=== PATIENT | female | born 1995 | race Caucasian/White ===

== ENCOUNTER → 2016-07-20 | Outpatient (CLI) | payer BC ==
[~2016-07-20] MED LIST: VIIBRYD40 MG PO
== END ==
LOC: BHSO 07:59
DX: F90.0 Attention-deficit hyperactivity disorder, predominantly inattentive type (principal)

== ENCOUNTER 2016-10-14 16:18 | Emergency (ER) | payer BC ==
[~2016-10-14] VITALS: Ht 190.5 cm; Wt 106.8 kg
[2016-10-14 16:24] VITALS: BP 139/88; PULSE 98; TEMP 99.6
[2016-10-14] MEDS ORDERED: VIIBRYD40 MG PO ×2 (16:28→17:14)
== END 2016-10-14 17:21 | disposition home or self-care (01) ==
LOC: COL.ER 16:18
DX: F32.9 Major depressive disorder, single episode, unspecified (principal); F90.9 Attention-deficit hyperactivity disorder, unspecified type; F41.9 Anxiety disorder, unspecified; Z76.0 Encounter for issue of repeat prescription

== ENCOUNTER → 2017-01-20 | Outpatient (CLI) | payer BC | LOC: BHSO 15:30 | DX: F90.0 Attention-deficit hyperactivity disorder, predominantly inattentive type (principal) ==

== ENCOUNTER 2017-03-27 10:54 | Outpatient (RCR) | payer OTHER | END 2017-06-15 | disposition home or self-care (01) | LOC: WSOH | DX: S39.012A Strain of muscle, fascia and tendon of lower back, initial encounter (principal); X50.0XXA Overexertion from strenuous movement or load, initial encounter; Y99.0 Civilian activity done for income or pay ==

== ENCOUNTER → 2017-04-19 | Outpatient (CLI) | payer BC, OTHER | LOC: BHSO 14:38 | DX: F90.0 Attention-deficit hyperactivity disorder, predominantly inattentive type (principal) | CPT/HCPCS: G0463 ==

== ENCOUNTER → 2017-11-01 | Outpatient (CLI) | payer BC | LOC: BHSO 14:14 | DX: F90.0 Attention-deficit hyperactivity disorder, predominantly inattentive type (principal) | CPT/HCPCS: G0463 ==

== ENCOUNTER → 2018-05-02 | Outpatient (CLI) | payer BC, OTHER | LOC: BHSO 14:14 | DX: F90.0 Attention-deficit hyperactivity disorder, predominantly inattentive type (principal) | CPT/HCPCS: G0463 ==

== ENCOUNTER → 2018-11-09 | Outpatient (CLI) | payer BC, OTHER | LOC: BHSO 11:32 | DX: F90.0 Attention-deficit hyperactivity disorder, predominantly inattentive type (principal) | CPT/HCPCS: G0463 ==

== ENCOUNTER → 2019-05-13 | Outpatient (CLI) | payer BC | LOC: BHSO 08:24 | DX: F90.0 Attention-deficit hyperactivity disorder, predominantly inattentive type (principal) | CPT/HCPCS: G0463 ==

== ENCOUNTER → 2019-12-12 | Outpatient (CLI) | payer BC | LOC: BHSO 16:21 | DX: F90.0 Attention-deficit hyperactivity disorder, predominantly inattentive type (principal) | CPT/HCPCS: G0463 ==

== ENCOUNTER 2022-06-11 09:57 | Inpatient (IN) | payer BC ==
[~2022-06-11] VITALS: Ht 193 cm; Wt 136.4 kg
[2022-06-11] VITALS (9 sets, daily range): BP systolic 119–138; BP diastolic 71–92; PULSE 73–91; TEMP 97.8–98.6
[2022-06-11] MEDS ORDERED: VYVANSE40 MG PO (10:25)
[2022-06-11 10:52] LABS: BASO % 0.5 % (0.0-2.0); EOS # 0.1 K/mm3 (0.0-0.7); EOS % 2.2 % (0.0-4.0); GRAN # 3.5 K/mm3 (1.4-6.5); GRAN % 54.4 % (42.2-75.2); HEMOGLOBIN 12.2 g/dl (12.5-16.0); LYMPH # 2.3 K/mm3 (1.2-3.4); LYMPH % 35.3 % (20.0-51.0); MEAN CELL VOLUME 86 fl (80.0-100.0); MEAN CORPUSCULAR HEMOGLOBIN 28 pg (27-31); MEAN CORPUSCULAR HGB CONC 33 g/dl (33.0-37.0); MEAN PLATELET VOLUME 9.3 fl (7.4-10.4); MONO # 0.5 K/mm3 (0.1-0.6); MONO % 7.1 % (1.7-9.3); PLATELET COUNT 334 K/mm3 (130-400); REDCELL DISTRIBUTION WIDTH-CV 14.2 % (11.5-14.5)
[2022-06-11 10:57] LABS: HEMATOCRIT 36.9 % (37.0-47.0)
[2022-06-11 11:01] LABS: ALBUMIN 3.8 gm/dL (3.5-5.0); BILIRUBIN,TOTAL 0.9 mg/dL (0.2-1.2); CALCIUM 8.8 mg/dL (8.4-10.2); CREATININE, serum 0.73 mg/dL (0.57-1.11); POTASSIUM 4.1 mmol/L (3.5-4.5); TOTAL PROTEIN 6.8 gm/dL (6.2-8.1)
[2022-06-11 12:06] LABS: COLLECTION METHOD CLEAN CATCH
[2022-06-11 12:32] LABS: MUCOUS Present (NOT PRESENT); URINE BACTERIA None Seen /hpf (NONE SEEN); URINE RBC 0-2 /hpf (0-2)
[2022-06-11 12:37] LABS: URINE APPEARANCE Clear (CLEAR/HAZY); URINE BLOOD Negative (NEGATIVE); URINE COLOR Yellow (YELLOW); URINE GLUCOSE Negative (NEGATIVE); URINE KETONE Negative (NEGATIVE); URINE NITRATE Negative (NEGATIVE); URINE PROTEIN(semi-quant) Negative (NEGATIVE); URINE UROBILINOGEN 0.2 E.U/dL (0.2-1.0)
--- NOTE | 2022-06-11 16:24 | NUR ---
Patient received post op from Rhina Pacu nurse. Patient very sleepy, arousable to name. Her significant other at bedside. VSS on O2, 3L. Ivf to RAC. Ice water provided. Midline dressing CDI. SCDS BLE. Cherelle to DD. Will closly monitor
--- NOTE | 2022-06-11 17:41 | NUR ---
Patient attempted to eat soup, but nausea persist. notified & orders obtained. Scopalimine patch ordered & placed behind patients right ear. Patient reports burning incisional pain with movement. Prn Morphine given. Patient does reports overall the pain being better than prior to surgery. She requested SCDS be removed, I removed, but explained importance to patient. IVF to Rac. Will monitor.
--- NOTE | 2022-06-11 19:27 | NUR ---
Patient resting in bed. Reports positional nausea still, she reports she is someone who had terrible car sickness. She did eat a little for dinner without emesis. Pain present, but managed with the Prn pedritoie. Bedside report to [facility] to resume cares
--- NOTE | 2022-06-11 19:30 | NUR ---
PT RESTING IN BED. DROWSY BUT ORIENTED. ADMITS TO MILD NAUSEA WITH HEAD MOVEMENT. SCOPOLAMINE PATCH PRESENT. O2 ON 2L NC FOR NAUSEA. PAIN UNDER CONTROL AT THIS TIME. DRIFTS BACK TO SLEEP. SIG OTHER AT BEDSIDE. VERY SUPPORTIVE. CALL LIGHT IN REACH.
--- NOTE | 2022-06-11 19:30 | NUR ---
DR CONNELLY NOTIFIED PT WOULD LIKE TO TAKE HER OWN HOME MED. GAVE UPDATE. SEE NEW ORDERS.
--- NOTE | 2022-06-11 21:25 | NUR ---
PT C/O ABOUT HEARTBURN. DR CONNELLY NOTIFIED. SEE NEW ORDER.
[2022-06-12 03:54] VITALS: BP 116/66; PULSE 87; TEMP 98.6
--- NOTE | 2022-06-12 07:54 | NUR ---
Pt doing okay this morming. Incision dressing with no drainage, pt does have abd binder on which she does like. Dr Tariq in to see pt, new orders wrote. Pt eating breafkast at this time
[2022-06-12 08:29] VITALS: BP 111/60; PULSE 79; TEMP 98.2
--- NOTE | 2022-06-12 09:30 | NUR ---
Villarreal catheter removed, educated pt on activity and the need for calling for help when she needs/wants to get home. Pts SO at bedside. All questions answered, will continue to monitor
[2022-06-12 11:13] VITALS: BP 125/61; PULSE 72; TEMP 97.7
--- NOTE | 2022-06-12 14:12 | NUR ---
Pt doing well, PRN pain medication working well for pain management. Pt continues to have visitors with her. She is voiding without difficulty since have the catheter removed. Discussed going for a walk, she reported soon when friends leave.
[2022-06-12 15:32] VITALS: BP 123/64; PULSE 71; TEMP 98.3
--- NOTE | 2022-06-12 16:42 | NUR ---
Pt continues to do well, pain is managed with oral pain medication. Pt 2-3 at rest, 5-6 when getting up. Pt tolerating general diet with no complaints of N/V
[2022-06-12 19:17] VITALS: BP 108/67; PULSE 86; TEMP 97.7
--- NOTE | 2022-06-12 20:34 | NUR ---
PT REPORTS INCISIONAL PAIN IS RETURNING. MEDICATED WITH PERCOCET 2 TABS PO NOW WITH SCHEDULED HS MEDS. INT TO RAC. HAS BEEN UP IN [facility]. WEARING ABD BINDER FOR COMFORT, DRSG D/I. VOIDING WITHOUT PROBLEM, NOT WEARING A VPAD.
[2022-06-12 23:18] VITALS: BP 102/59; PULSE 66; TEMP 97.6
--- NOTE | 2022-06-13 00:33 | NUR ---
PT AWAKE, MEDICATED WITH PERCOCET 2 TABS PO FOR LOWER ABD PAIN.
[2022-06-13 03:28] VITALS: BP 108/60; PULSE 65; TEMP 98.2
--- NOTE | 2022-06-13 05:40 | NUR ---
PT AWAKE, REPORTS SHE STARTED HER PERIOD, PADS PROVIDED. MEDICATED WITH PERCOCET 2 TABS PO FOR LEFT ABD PAIN. DRSG D/I, HAS ABD BINDER OFF AT THIS TIME. STILL DENIES FLATUS.
--- NOTE | 2022-06-13 08:06 | NUR ---
Pt doing well this morning, reports that her pain is tolerable at this time. Pt states that she is getting up to the restroom independently and feels good. She stated that she feels her stomach rumbling more and has passed a little gas. Abd binder is off at this time, informed her to let me know when/if she needs assistance putting it back on. Lungs clear and heart rate regular. Incision well approximated, no drainage or redness noted. Pt is voiding without difficulty. SCDs are off at this time. Pt does have [place] clinical nursing instructor working with her as well.
--- NOTE | 2022-06-13 09:19 | NUR ---
SW met with the patient to discuss discharge plan. The patient lives in [place] with her , Mary (ph#[phone]). She reports independence with ADLs and does not have any DME. The patient's PCP is Dr. Alyce Rodriguez and she [facility]. The patient does not have a DPOA-HC and she was not interested in completing one at this time. The patient plans to return home with her upon discharge. No additional needs at this time. *Discharge plan: home with *
--- NOTE | 2022-06-13 11:15 | NUR ---
Pt doing okay, reports that she is passing more gas, pain well controlled with oral pain medication. Pt did not eat breakfast due to nausea, pt reports feeling better now.
--- NOTE | 2022-06-13 13:00 | NUR ---
Encouraged pt to ambulate in halls. Pt seemed hesitant as far as walking in the halls, but she reports that she has been up in the room and going to the bathroom without difficulty
[2022-06-13 15:35] VITALS: BP 129/78; PULSE 90; TEMP 98.1
[2022-06-13 20:10] VITALS: BP 129/77; PULSE 94; TEMP 97.9
--- NOTE | 2022-06-13 20:56 | NUR ---
pt a&ox4 resting in bed. meds given and assessment complete. pt rates pain a 2/10. midline incision is cdi. pt denies nausea but does not have an appetite. no needs at this time. call light within reach.
[2022-06-14 00:24] VITALS: BP 132/59; PULSE 77; TEMP 97.9
[2022-06-14 04:39] VITALS: BP 131/72; PULSE 84; TEMP 97.8
[2022-06-14 08:12] VITALS: BP 127/65; PULSE 85; TEMP 98
[2022-06-14] MEDS ORDERED: PERCOCET 325 MG1 TA2 PO (08:43)
--- NOTE | 2022-06-14 10:05 | NUR ---
PATIENT WAS TAKEN TO ER ENTRANCE VIA WHEELCHAIR WHERE SHE LEFT IN STABLE CONDITION. PATIENT LEFT IN THE CARE OF HER .
--- NOTE | 2022-06-14 10:11 | NUR ---
JOANN GIVEN DISCHARGE INSTRUCTIONS AND EDUCAITON. S/S OF INFECTION REVIEWED. RODRIGOETN VERBALIZED UNDERSTANDING TO THE ABOVE. NO IV OR TELE. PATIENT GETTING DRESSED FOR DISCHAGRRE WITH ASSISTANCE FROM .
--- NOTE | 2022-06-14 12:34 | NUR ---
Initial visit; Patient thanked Route J[facility] for stopping though declined spiritual care. Route J[facility] offered a get well message.
== END 2022-06-14 10:05 | disposition home or self-care (01) | DRG 743 ==
LOC: COL.ER 09:57 → SURG 13:12
PROVIDERS: Physician Assistant; ADMIT Obstetrics & Gynecology
PROC: 0UB60ZZ Excision of Left Fallopian Tube, Open Approach (ICD-10-PCS; principal; 2022-06-11 14:15)
PROC: 0UB10ZZ Excision of Left Ovary, Open Approach (ICD-10-PCS; 2022-06-11 14:15)
DX: N83.53 Torsion of ovary, ovarian pedicle and fallopian tube (principal); D27.1 Benign neoplasm of left ovary; F90.9 Attention-deficit hyperactivity disorder, unspecified type; F32.A Depression, unspecified
CPT/HCPCS: A4314; A9284; J0171; J0330; J0690; J1100; J1885; J2270; J2405; J2550; J2704; J3010; J7030; J7120; Q9967

== ENCOUNTER 2022-06-16 12:18 | Emergency (ER) | payer BC ==
[~2022-06-16] VITALS: Ht 193 cm; Wt 136.4 kg
[~2022-06-16 12:18] MED LIST changes: +PERCOCET 325 MG1 TA2 PO; +VYVANSE40 MG PO
[2022-06-16 12:22] VITALS: TEMP 98.4
[2022-06-16 12:44] LABS: BASO # 0.1 K/mm3 (0.0-0.2); BASO % 0.5 % (0.0-2.0); EOS # 0.1 K/mm3 (0.0-0.7); EOS % 1.5 % (0.0-4.0); GRAN # 6.4 K/mm3 (1.4-6.5); GRAN % 66.9 % (42.2-75.2); HEMATOCRIT 43.1 % (37.0-47.0); HEMOGLOBIN 14.4 g/dl (12.5-16.0); LYMPH # 2.5 K/mm3 (1.2-3.4); LYMPH % 26.1 % (20.0-51.0); MEAN CELL VOLUME 85 fl (80.0-100.0); MEAN CORPUSCULAR HEMOGLOBIN 28 pg (27-31); MEAN CORPUSCULAR HGB CONC 33 g/dl (33.0-37.0); MONO # 0.4 K/mm3 (0.1-0.6); MONO % 4.6 % (1.7-9.3); PLATELET COUNT 400 K/mm3 (130-400); RED BLOOD COUNT 5.09 M/mm3 (4.10-5.30)
[2022-06-16 13:51] LABS: ALANINE AMINOTRANSFERASE 41 U/L (0-55); ALBUMIN 3.4 gm/dL (3.5-5.0); ALKALINE PHOSPHATASE 77 U/L (40-150); ANION GAP 7 mmol/L (7-16); AST,SGOT 26 U/L (5-34); BILIRUBIN,TOTAL 0.5 mg/dL (0.2-1.2); BLOOD UREA NITROGEN 8 mg/dL (7-19); CALCIUM 8.9 mg/dL (8.4-10.2); CARBON DIOXIDE 23 mmol/L (22-29); CHLORIDE 107 mmol/L (98-107); CREATININE, serum 0.74 mg/dL (0.57-1.11); GLUCOSE 96 mg/dL (70-99); POTASSIUM 4.6 mmol/L (3.5-4.5); SODIUM 137 mmol/L (136-145); TOTAL PROTEIN 6.8 gm/dL (6.2-8.1)
[2022-06-16 14:05] LABS: TROPONIN-I < 0.010 ng/mL (0.00-0.033)
[2022-06-16 15:47] VITALS: BP 110/86; PULSE 92
== END 2022-06-16 15:49 | disposition home or self-care (01) ==
LOC: COL.ER 12:18
PROVIDERS: Emergency Medicine; Nurse Practitioner
DX: R00.2 Palpitations (principal)
CPT/HCPCS: J7030; Q9967

== ENCOUNTER → 2023-03-31 | Outpatient (CLI) | payer BC | LOC: COL.RAD 12:57 | DX: N94.89 Other specified conditions associated with female genital organs and menstrual cycle (principal); R16.2 Hepatomegaly with splenomegaly, not elsewhere classified | CPT/HCPCS: Q9967 ==

== ENCOUNTER → 2023-11-02 | Outpatient (CLI) | payer BC ==
[~2023-11-02] MED LIST changes: +Iohexol 300 - 100 ML VIAL IV ONE; +NS 100 ML IV SCH
== END ==
LOC: COL.RAD 14:57
DX: R16.2 Hepatomegaly with splenomegaly, not elsewhere classified (principal); K76.0 Fatty (change of) liver, not elsewhere classified
CPT/HCPCS: Q9967